=== PATIENT | female | born 1975 | race Hispanic/Latino ===

== ENCOUNTER 2017-09-14 18:54 | Emergency (ER) | payer MEDICARE ==
[2017-09-14 19:11] VITALS: BP 135/88
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
== END 2017-09-14 21:56 | disposition home or self-care (01) ==
LOC: ED 18:54
DX: S70.11XA Contusion of right thigh, initial encounter (principal); J44.9 Chronic obstructive pulmonary disease, unspecified; F17.200 Nicotine dependence, unspecified, uncomplicated; F12.10 Cannabis abuse, uncomplicated; Z88.8 Allergy status to other drugs, medicaments and biological substances; T74.21XA Adult sexual abuse, confirmed, initial encounter; Y93.89 Activity, other specified; Y92.89 Other specified places as the place of occurrence of the external cause; Y99.8 Other external cause status
CPT/HCPCS: 99282